=== PATIENT | female | born 1960 | race Asian ===

== ENCOUNTER 2018-06-20 10:57 | Outpatient (CLI) | payer OTHER ==
[~2018-06-20 10:57] MED LIST: HYDR25TA60 PO; INDOMETHACIN25 MG PO
== END 2018-06-20 19:41 | disposition home or self-care (01) ==
LOC: MAMMO 10:57
DX: Z12.31 Encounter for screening mammogram for malignant neoplasm of breast (principal)

== ENCOUNTER 2018-08-11 16:20 | Outpatient (CLI) | payer OTHER | END 2018-08-11 23:07 | disposition home or self-care (01) | LOC: LABW 16:20 | PROVIDERS: Physician Assistant | DX: I10 Essential (primary) hypertension (principal); K21.9 Gastro-esophageal reflux disease without esophagitis | CPT/HCPCS: 36415; 80061; 82306; 83036; 84439; 84443 ==

== ENCOUNTER 2020-01-29 10:23 | Outpatient (CLI) | payer BC | END 2020-01-29 23:24 | disposition home or self-care (01) | LOC: MAMMO 10:23 | DX: Z12.31 Encounter for screening mammogram for malignant neoplasm of breast (principal) ==

== ENCOUNTER 2022-12-11 10:50 | Outpatient (CLI) | payer OTHER | END 2022-12-11 20:24 | disposition home or self-care (01) | LOC: RAD 10:50 | PROVIDERS: ATTEND Nurse Practitioner Family | DX: E55.9 Vitamin D deficiency, unspecified (principal); E56.8 Deficiency of other vitamins; L63.8 Other alopecia areata; M06.4 Inflammatory polyarthropathy; M25.60 Stiffness of unspecified joint, not elsewhere classified; R76.0 Raised antibody titer ==